=== PATIENT | female | born 1975 | race Caucasian/White ===

== ENCOUNTER → 2021-11-15 14:14 | Outpatient (CLI) | payer OTHER, SELFPAY ==
--- NOTE | 2021-11-15 | DI.MG.S_ITS ---
UNILATERAL LEFT DIGITAL DIAGNOSTIC MAMMOGRAM 3D/2D WITH ADDITIONAL VIEWS: 11/15/2021 CLINICAL: Additional evaluation requested from prior study. Comparison is made to exams dated: 08/21/2021 mammogram and 07/24/2018 mammogram - outside facility. The tissue of left breast is heterogeneously dense. This may lower the sensitivity of mammography. The previously seen asymmetry in the left breast is no longer visualized, presumably secondary to superimposed fibroglandular breast tissue on the prior exam. No significant masses, calcifications, or other findings are seen in the breast. IMPRESSION: NEGATIVE There is no mammographic evidence of malignancy. Return to annual mammogram screening schedule is recommended. This exam was interpreted at Station ID: [id number]. NOTE: For mammograms, a report in lay terms will be sent to the patient. Approximately 15% of breast malignancies will not be visualized mammographically. In the management of a palpable breast mass, a negative mammogram must not discourage biopsy of a clinically suspicious lesion. Electronically Signed By: Adam castellon/gloria:11/15/2021 14:49:17 letter sent: Normal Exam ACR BI-RADS Category 1: Negative [id number]
== END ==
PROVIDERS: PCP Specialist; Referring Provider Specialist; Visit Provider Specialist
DX: R92.8 Other abnormal and inconclusive findings on diagnostic imaging of breast (principal)
CPT/HCPCS: 77065; G0279